=== PATIENT | female | born 1965 | race Caucasian/White ===

== ENCOUNTER 2017-05-28 16:58 | Observation (INO) ==
[2017-05-28] MEDS ORDERED: Ondansetron 4 MG/2 ML VIAL IVP PRN (18:58)
[2017-05-28] MEDS ORDERED: *HR* Morphine 2 MG/ML SYRINGE IVP PRN (18:58)
[2017-05-28] MEDS ORDERED: Naloxone 0.4 MG/ML INJ IVP PRN (18:58)
[2017-05-28] MEDS ORDERED: Nitroglycerin 0.4 MG TAB.SUBL SL PRN (18:59)
--- NOTE | 2017-05-28 19:05 | Event Note ---
Date of Encounter: 05/29/17 Time of Encounter: 18:40 Patient is a 51y/o female with PMH of HTN, depression, HLD, morbid obesity, recurrent UTI, chronic back pain, s/p renal ca s/p nephrectomy who was transferred from [facility] ER for evaluation of chest pain concerning for ACS and UTI. Patient seen and examined at bedside. Currently chest pain free. She reports of significant family history of cardiac disease in both parents. Reports of her father having his first CA at age 50. 1. Will admit to rule out ACS Serial TNI CTA chest was done at [facility] and PE was ruled out tele monitoring nitroglycerin SL prn chest pain morphine prn pain not relieved by nitro SL ASA, Statin O2 supplementation as needed NPO after midnight for nuclear stress test in am continue home antihypertensive agents. 2. UTI continue IV abx (Ceftriaxone 1gm IV qdaily) f/u urine cultures 3. History of renal ca s/p nephrectomy will continue gentle IV fluids given renal history and recent contrast use 4. Restart home medications after verification Case discussed with MARLIN Null.
--- NOTE | 2017-05-28 19:48 | Internal Med History&Physical ---
<Cynthia Null M - Last Filed: 05/28/17 19:42> Date of Encounter: 05/28/17 Time of Encounter: 19:42 Assessment and Plan (1) Chest pain Status: Acute Patient presents with mid-sternal squeezing chest pain, radiating to right shoulder and jaw, accompanied by shortness of breath. EKG showed no new ischemic changes. Troponin negative at 0.00. Aspirin and Nitro paste given. Continuous award clerk serial troponins echocardiogram and stress test in the morning. Qualifiers: Chest pain type: unspecified Qualified Code(s): R07.9 - Chest pain, unspecified (2) Tachycardia Status: Acute Patient with sinus tachycardia, HR running 100-110s. Patient reports this is chronic and her heart rate always runs high and in the low 100s. Holter monitor from 03/19/17 confirms this with average HR of 103, and baseline rhythm of sinus. (3) Urinary tract infection Status: Acute Patient reports recurrent UTIs. She has dysuria. UA consistent with UTI, most recent culture (in April) grew e.coli sensitive to Rocephin. WBC elevated to 15.2. Rocephin IVPB daily. Qualifiers: Urinary tract infection type: acute cystitis Hematuria presence: with hematuria Qualified Code(s): N30.01 - Acute cystitis with hematuria (4) Renal cell carcinoma Status: Chronic S/p right nephrectomy. Patient received IV contrast for CTA at [place] [facility]. Given patient's single kidney status, Hydrate with 0.9NS at 75mL/hr for renal protection. Qualifiers: Laterality: right Qualified Code(s): C64.1 - Malignant neoplasm of right kidney, except renal pelvis (5) DVT prophylaxis Status: Acute anti-embolic stockings heparin TID Internal Medicine - H&P: HPI Chief complaint: chest pain Admitted From: Emergency Dept Plans for Post Hospital Care: Home History of present illness: Ms. Li is a 51 year old female with hypertension, hyperlipidemia, GERD, asthma, history of renal cell carcinoma status post right nephrectomy presented to [place] ED with complaints of chest pain. Patient reports that approximately 1 PM this afternoon she had a sudden onset of midsternal chest tightness that radiated to her right shoulder and right jaw. She reports this was accompanied by shortness of breath, and lightheadedness. The pain comes and goes, and currently she is chest pain-free. She denies any palpitations, nausea, abdominal pain, fever, chills or sweats. Patient does report dysuria. Evaluation in [place] ED included and EKG showed sinus tachycardia with no ischemic changes troponin was negative at 0.00. Chest x-ray showed no acute cardiopulmonary process. Chest CT showed no evidence of PE. White blood cell count was elevated at 15.2. UA was consistent with UTI. She was given Nitropaste in the [place] ED and she remains chest pain-free. On exam, patient is alert and oriented, in no acute distress. Heart has regular rhythm, with tachycardic rate. Lungs are clear bilaterally to auscultation. Abdomen is soft nontender positive bowel sounds. No peripheral edema. Peripheral pulses intact. Past Med Surg Social Fam HX - Past Medical History Medical history: asthma, cancer, GERD, hyperlipidemia Psychiatric history: anxiety, depression - Past Surgical History Surgical History: hysterectomy, thyroidectomy - Social History Smoking Status: Former smoker Smokeless Tobacco Status: No Alcohol use: occasionally Drug use: none - Family History Mother Living Status: Age at : 70 Cause of : afib, pacemaker placement Hx Family Cardiac Disorders: Yes (chf, pulm htn) Hx Family Endocrine Disorder: Yes (DM) Father Family Member Ethnicity: Non- Living Status: Hx Family Cardiac Disorders: No Hx Family Respiratory Disorders: No Hx Family Cancer: Yes Hx Family GI Disorders: Yes (GERD) Hx Family Endocrine Disorder: No Hx Family Neuromuscular Disorders: No Hx Family Neurologic Disorders: No Hx Family HEENT Disorders: No Hx Family Autoimmune Disorders: No Internal Medicine - H&P: Meds HYDROcodone/Acet 5/325 mg [[place] 5-325 mg] 1 tab PO DAILY PRN 10/07/15 [History] hydroCHLOROthiazide [Hydrochlorothiazide] 25 mg PO DAILY 10/07/15 [History] Bupropion HCl [Wellbutrin Xl] 300 mg PO DAILY 05/14/17 [History] Estrogens, Conjugated [Premarin Cream] 1 appl VG AD 05/14/17 [History] Levothyroxine Sodium 150 mcg PO 0630 05/14/17 [History] Omeprazole [PriLOSEC] 40 mg PO DAILY 05/14/17 [History] Pravastatin Sodium [Pravachol] 80 mg PO HS 05/14/17 [History] Solifenacin Succinate [Vesicare] 10 mg PO DAILY 05/14/17 [History] Trimethoprim [Trimethoprim] 100 mg PO DAILY 05/14/17 [History] 3 Allergy/AdvReac Type Severity Reaction Status Date / Time No Known Allergies Allergy Verified 05/28/17 14:41 All Systems PM: A 10-system review of systems was performed and is negative for pertinent findings except as documented above in the HPI. - Constitutional Constitutional: no chills, no fever(s), no night sweats - EENT Eyes: no change in vision, no discharge, no pain, no photophobia Ears: no ear discharge, no ear pain, no tinnitus Nose, mouth and throat: no dysphagia, no nasal discharge, no neck pain, no sore throat - Cardiovascular Cardiovascular ROS IM: chest pain, dyspnea, lightheadedness, no diaphoresis, no palpitations, no syncope - Respiratory Respiratory: dyspnea, no cough, no wheezing, no excessive phlegm production - Gastrointestinal Gastrointestinal: no abdominal pain, no diarrhea, no hematemesis, no hematochezia, no melena, no nausea, no vomiting - Genitourinary Genitourinary: dysuria, no change in urinary stream, no flank pain, no hematuria - Musculoskeletal Musculoskeletal ROS IM: no numbness, no tingling - Integumentary Integumentary IM: no rash, no unusual bruising - Neurological Neurological ROS: no confusion, no convulsions, no focal weakness, no numbness, no tingling, no tremor(s) - Hematologic/Lymphatic Hematologic/Lymphatic: no easy bruising - Constitutional Vitals: Temp Pulse Resp BP Pulse Ox 97.7 F 97 16 100/69 95 05/28/17 19:24 05/28/17 19:24 05/28/17 19:24 05/28/17 19:24 05/28/17 19:24 General appearance: Present: A&O X 3, morbidly obese, pleasant - Head Head exam: Present: atraumatic, normocephalic - Eye Eye exam: Present: PERRL, conjuntiva pink, sclera anicteric Pupils: Present: PERRL - Neck Neck exam general surgery: Present: supple, trachea midline. Absent: lymphadenopathy - Respiratory Respiratory exam: Present: CTAB. Absent: accessory muscle use, rales, rhonchi, wheezes - Cardiovascular Cardiovascular exam: Present: RRR, +S1, +S2. Absent: diastolic murmur, gallop, rubs, systolic murmur - GI/Abdominal GI/Abdominal exam: Present: normal bowel sounds, soft, no peritoneal signs. Absent: distended, tenderness - Extremities Exam Extremities exam: Present: warm, radial pulses palpable and symmetrical. Absent : calf tenderness, cyanotic, pedal edema - Neurological Exam Neurological exam: Present: CN II-XII intact, oriented X3, no focal deficits. Absent: facial droop, speech deficit - Skin Skin exam: Present: dry, intact Internal Med - H&P Results - Labs Labs: Labs from [place] [facility]: Hgb 13.7 Hct 40.9 WBC 15.2 Plt 372 Na 136 K 3.6 Cl 105 CO2 18 BUN 16 Cr 1.08 Glu 138 D-dimer 386 Trop 0.00 <Sunitha Woo - Last Filed: 05/29/17 07:28> Date of Encounter: 05/28/17 Time of Encounter: 18:45 Internal Medicine - H&P: HPI History of present illness: Ms. Li is a 51 year old female All Systems PM: A 10-system review of systems was performed and is negative for pertinent findings except as documented above in the HPI. - Constitutional Vitals: Temp Pulse Resp BP Pulse Ox 98.1 F 88 16 92/60 98 05/29/17 02:50 05/29/17 02:50 05/29/17 02:50 05/29/17 02:50 05/29/17 02:50 Internal Med - H&P Results - Labs CBC & Chem 7: 05/29/17 03:05 05/29/17 03:05 Labs: Short CBC 05/29/17 Range/Units 03:05 WBC 12.0 H (4.3-11.1) K/mcL Hgb 12.3 (11.5-15.4) g/dL Hct 38.2 (35.3-44.9) % Plt Count 356 (140-400) K/mcL Neutrophils # 7.4 (1.6-8.9) K/mcL BMP 05/29/17 03:05 Sodium 137 Potassium 3.4 L Chloride 103 Carbon Dioxide 25 BUN 13 Creatinine 1.14 H Glucose 130 H Calcium 9.1 Cardiac Enzymes 05/28/17 05/29/17 Range/Units 21:01 03:05 Troponin I 0.00 0.00 (0-0.03) ng/mL - Attending Attestation case discussed with MARLIN Null, I agree with her documented findings, assessment, and plan.
[2017-05-28] MEDS: *HR* Heparin 5,000 UNIT/ML VIAL SQ SCH (20:55)
[2017-05-28] MEDS: 0.9 % Sodium Chloride 1,000 ML IVC SCH (20:55)
[2017-05-29 03:29] LABS: Basophils # 0.1 K/mcL (0.0-0.2); Basophils % 1.1 %; Eosinophils # 0.3 K/mcL (0.0-0.6); Eosinophils % 2.5 %; Hematocrit 38.2 % (35.3-44.9); Hemoglobin 12.3 g/dL (11.5-15.4); Immature Granulocytes % 1.4 % (0-4); Lymphocytes # 3.1 K/mcL (0.6-4.6); Lymphocytes % 25.5 %; Mean Corpuscular HGB Conc 32.2 g/dL (31.6-35.5); Mean Corpuscular Hemoglobin 29.2 pg (28.0-33.3); Mean Corpuscular Volume 90.7 fL (83.0-100.0); Mean Platelet Volume 9.8 fL (9.4-12.4); Monocytes # 0.9 K/mcL (0.0-1.3); Monocytes % 7.3 %; Neutrophils # 7.4 K/mcL (1.6-8.9); Platelet Count 356 K/mcL (140-400); Red Blood Count 4.21 M/mcL (3.82-4.97); Red Cell Distribution Width 13.4 % (11.5-14.5); Segmented Neutrophils % 62.2 %
[2017-05-29 03:43] LABS: BUN/Creatinine Ratio 11 (6-26); Blood Urea Nitrogen 13 mg/dL (7-20); Calcium 9.1 mg/dL (8.6-10.8); Carbon Dioxide 25 mEq/L (19-29); Chloride 103 mEq/L (98-109); Chol/HDL Ratio 4.5 (0-4.9); Cholesterol 162 mg/dL (< 200); Glucose 130 mg/dL (70-99); HDL Cholesterol 36 mg/dL (40-59); LDL Cholesterol,Calculated 87 mg/dL (0-99); Magnesium 1.9 mg/dL (1.6-2.6); Osmolality,Calculated 286 (280-300); Phosphorous 2.9 mg/dL (2.3-4.7); Potassium 3.4 mEq/L (3.5-4.5); Sodium 137 mEq/L (136-145); Triglycerides 195 mg/dL (< 150); eGFR For African Americans > 60 (> 60); eGFR For Non-African Americans 50 (> 60)
[2017-05-29] MEDS ORDERED: Regadenoson 0.4 MG/5 ML SYRINGE IVP ONE (05:49)
[2017-05-29] MEDS: *HR* Heparin 5,000 UNIT/ML VIAL SQ SCH ×3 (06:19→20:16)
[2017-05-29] MEDS ORDERED: Perflutren Lipid Microsphere 1.3 ML in 0.9 % Sodium Chloride 8.7 ML IVP ONE (08:31)
[2017-05-29] MEDS: 0.9 % Sodium Chloride 1,000 ML IVC SCH ×2 (12:13→13:31)
[2017-05-29] MEDS ORDERED: Ibuprofen 600 MG TABLET PO PRN (12:17)
[2017-05-29] MEDS: BuPROPion XL (24 HR) 150 MG TABLET PO SCH (13:33)
[2017-05-29] MEDS ORDERED: Acetaminophen 325 MG TABLET PO PRN (14:03)
--- NOTE | 2017-05-29 14:20 | Internal Med Progress Note ---
Date of Encounter: 05/29/17 Time of Encounter: 14:18 - Assessment and plan (1) Chest pain Current Visit: No Status: Acute Assessment and plan: Need to r/o ACS So far troponin x 3negative 2 D Echo - Normal LVEF No wall motion abnormalities Cont ASA, Statin Will f/u on Stres test results Qualifiers: Chest pain type: unspecified Qualified Code(s): R07.9 - Chest pain, unspecified (2) ZANA (acute kidney injury) Current Visit: No Status: Acute Assessment and plan: due to dehydration Received IVF till now (3) HLD (hyperlipidemia) Current Visit: No Status: Acute Assessment and plan: on statin Qualifiers: Qualified Code(s): E78.5 - Hyperlipidemia, unspecified (4) Hypertension Current Visit: No Status: Acute Assessment and plan: stable BP Held HCTZ due to ZANA Qualifiers: Hypertension type: essential hypertension Qualified Code(s): I10 - Essential (primary) hypertension (5) DVT prophylaxis Current Visit: No Status: Acute Assessment and plan: on SQ heparin - Subjective Interval history: Ms. Li is a 51 year old female with hypertension, hyperlipidemia, GERD, asthma, history of renal cell carcinoma status post right nephrectomy presented to [place] ED with complaints of chest pain. Patient reports that approximately 1 PM this afternoon she had a sudden onset of midsternal chest tightness that radiated to her right shoulder and right jaw. She reports this was accompanied by shortness of breath, and lightheadedness. The pain comes and goes, and currently she is chest pain-free. She denies any palpitations, nausea, abdominal pain, fever, chills or sweats. Patient does report dysuria. Evaluation in [place] ED included and EKG showed sinus tachycardia with no ischemic changes troponin was negative at 0.00. Chest x-ray showed no acute cardiopulmonary process. Chest CT showed no evidence of PE. Pt was admitted here for chest pain to r/o ACS. Pt denied any more CP / SOB. Denied any N / V - Constitutional Vitals: Temp Pulse Resp BP Pulse Ox 97.9 F 99 14 120/86 95 05/29/17 11:32 05/29/17 11:32 05/29/17 11:32 05/29/17 11:32 05/29/17 11:32 General appearance: Present: A&O X 3, morbidly obese, pleasant - Head Head exam: Present: atraumatic, normal inspection - Respiratory Respiratory exam: Present: decreased breath sounds, wheezes. Absent: respiratory distress, rhonchi - Cardiovascular Cardiovascular exam: Present: RRR, +S1, +S2. Absent: systolic murmur - Extremities Exam Extremities exam: Absent: calf tenderness, pedal edema, tenderness - Back Exam Back exam: Absent: CVA tenderness (L), CVA tenderness (R) - Neurological Exam Neurological exam: Present: alert, oriented X3 - Psychiatric Psychiatric exam: Present: normal affect, normal mood Internal Medicine: Result - Labs CBC & Chem 7: 05/29/17 03:05 05/29/17 03:05 Labs: Short CBC 05/29/17 Range/Units 03:05 WBC 12.0 H (4.3-11.1) K/mcL Hgb 12.3 (11.5-15.4) g/dL Hct 38.2 (35.3-44.9) % Plt Count 356 (140-400) K/mcL Neutrophils # 7.4 (1.6-8.9) K/mcL BMP 05/29/17 03:05 Sodium 137 Potassium 3.4 L Chloride 103 Carbon Dioxide 25 BUN 13 Creatinine 1.14 H Glucose 130 H Calcium 9.1 Cardiac Enzymes 05/28/17 05/29/17 Range/Units 21:01 03:05 Troponin I 0.00 0.00 (0-0.03) ng/mL Consult Discharge Plan - Plan Referrals: Gokul Barreto DO [Primary Care Provider] -
[2017-05-30] MEDS: *HR* Heparin 5,000 UNIT/ML VIAL SQ SCH ×2 (05:58→15:19)
[2017-05-30 07:05] LABS: Basophils # 0.1 K/mcL (0.0-0.2); Basophils % 1.5 %; Eosinophils # 0.3 K/mcL (0.0-0.6); Eosinophils % 3.3 %; Hematocrit 38.9 % (35.3-44.9); Hemoglobin 12.2 g/dL (11.5-15.4); Immature Granulocytes % 2.2 % (0-4); Lymphocytes # 2.8 K/mcL (0.6-4.6); Lymphocytes % 29.7 %; Mean Corpuscular HGB Conc 31.4 g/dL (31.6-35.5); Mean Corpuscular Hemoglobin 28.8 pg (28.0-33.3); Monocytes # 0.8 K/mcL (0.0-1.3); Monocytes % 8.1 %; Neutrophils # 5.1 K/mcL (1.6-8.9); Platelet Count 329 K/mcL (140-400); Red Blood Count 4.23 M/mcL (3.82-4.97); Red Cell Distribution Width 13.5 % (11.5-14.5); Segmented Neutrophils % 55.2 %
[2017-05-30 07:07] LABS: BUN/Creatinine Ratio 9 (6-26); Blood Urea Nitrogen 9 mg/dL (7-20); Calcium 9.1 mg/dL (8.6-10.8); Carbon Dioxide 24 mEq/L (19-29); Chloride 107 mEq/L (98-109); Glucose 107 mg/dL (70-99); Osmolality,Calculated 289 (280-300); Potassium 3.5 mEq/L (3.5-4.5); Sodium 140 mEq/L (136-145); eGFR For African Americans > 60 (> 60); eGFR For Non-African Americans 58 (> 60)
[2017-05-30] MEDS: BuPROPion XL (24 HR) 150 MG TABLET PO SCH (08:44)
[2017-05-30] MEDS ORDERED: hydroCHLOROthiazide 25 MG TABLET PO SCH (09:00)
[2017-05-30] MEDS ORDERED: TRIMETHOPRIM 100 MG PO SCH (09:00)
[2017-05-30] MEDS ORDERED: Estrogens, Conjugated CREAM 30 GM TUBE VG SCH (09:00)
--- NOTE | 2017-05-30 15:25 | Discharge Summary ---
Date of Encounter: 05/30/17 Time of Encounter: 15:19 - Discharge Diagnosis (1) Chest pain Priority: Primary Status: Acute Qualifiers: Chest pain type: unspecified Qualified Code(s): R07.9 - Chest pain, unspecified (2) ZANA (acute kidney injury) Priority: Primary Status: Resolved (3) HLD (hyperlipidemia) Priority: Secondary Status: Acute Qualifiers: Qualified Code(s): E78.5 - Hyperlipidemia, unspecified (4) Hypertension Priority: Secondary Status: Acute Qualifiers: Hypertension type: essential hypertension Qualified Code(s): I10 - Essential (primary) hypertension - Discharge Medications Prescriptions: Nitroglycerin 0.4 mg SL Q5MIN PRN #15 PRN Reason: Chest Pain Metoprolol [Lopressor] 12.5 mg PO BID 30 Days Home Medications: HYDROcodone/Acet 5/325 mg [[place] 5-325 mg] 1 tab PO DAILY PRN 10/07/15 [History] Bupropion HCl [Wellbutrin Xl] 300 mg PO DAILY 05/14/17 [History] Estrogens, Conjugated [Premarin Cream] 1 appl VG AD 05/14/17 [History] Levothyroxine Sodium 150 mcg PO 0630 05/14/17 [History] Omeprazole [PriLOSEC] 40 mg PO DAILY 05/14/17 [History] Pravastatin Sodium [Pravachol] 80 mg PO HS 05/14/17 [History] Solifenacin Succinate [Vesicare] 10 mg PO DAILY 05/14/17 [History] Trimethoprim 100 mg PO DAILY 05/14/17 [History] Metoprolol [Lopressor] 12.5 mg PO BID 30 Days 05/30/17 [Rx] Nitroglycerin 0.4 mg SL Q5MIN PRN #15 05/30/17 [Rx] Allergies/Adverse Reactions: 3 Allergy/AdvReac Type Severity Reaction Status Date / Time No Known Allergies Allergy Verified 05/28/17 14:41 Procedures/tests Complete & Pending: Procedures Performed prior 72 hours Category Date Time Status NM meggan perf SPECT multi [NM] Routine Exams 05/28/17 18:59 Taken EV echocardiogram w enhance Routine Y 05/29/17 20:04 Completed SP pharm nuclear stress Routine Y 05/29/17 07:05 Completed Date of admission: 05/28/17 19:01 Primary care physician: Gokul Barreto DO Consults: 05/30/17 13:08 Consult to Cardiology [CONS] Routine Comment: Consulting Provider: Cardiology [facility] Reason for Consult: abnormal stress test Call Completed: Yes - Patient Status Disposition: Home, Self-Care Condition: Good Overall status at discharge: patient is back to baseline - Discharge Instructions Follow Up With: Gokul Barreto DO [Primary Care Provider] - (Appointment has been web requested. Office will contact patient at home to schedule appointment. ) Alex Fraire DO [Partnered Physician] - Additional Instructions: Need to f/u with PCP in one week Need to f/u with Master Control Operator Dr. Martinez in one week - Diet and Activity Activity: increase activity as tolerated Diet: low salt diet Hospital course: Ms. Li is a 51 year old female with hypertension, hyperlipidemia, GERD, asthma, history of renal cell carcinoma status post right nephrectomy presented to [place] [facility] with complaints of chest pain. Patient reports that approximately 1 PM this afternoon she had a sudden onset of midsternal chest tightness that radiated to her right shoulder and right jaw. She reports this was accompanied by shortness of breath, and lightheadedness. The pain comes and goes, and currently she is chest pain-free. She denies any palpitations, nausea, abdominal pain, fever, chills or sweats. Patient does report dysuria. Evaluation in [place] ED included and EKG showed sinus tachycardia with no ischemic changes troponin was negative at 0.00. Chest x-ray showed no acute cardiopulmonary process. Chest CT showed no evidence of PE. Pt was admitted here for chest pain to r/o ACS. She was placed on senior software manager and checked serial troponin x3 which were negative. Since she is at high risk for ACS with all the risk factors, we did nuclear stress test , which came back as slightly abnormal with small sized, mild intensity, reversible apical lateral defect suspicious for breast attentuation, however ischemia cannot be excluded. So I consulted Master Control Operator Dr. Fraire, who did evaluated the pt and recommend medical management for now and f/u with him as an out pt. Pt denied any more CP / SOB. So I am discharging her in stable condition today, recommend to start taking Metoprolol 12.5mg BID, cont ASA and Statin. - Time Spent with Patient Total time spent providing and/or coordinating discharge services: - Constitutional Vitals: Temp Pulse Resp BP Pulse Ox 98.5 F 92 16 126/90 96 05/30/17 11:31 05/30/17 11:31 05/30/17 11:31 05/30/17 11:31 05/30/17 11:31 General appearance: Present: A&O X 3, morbidly obese, pleasant - Head Head exam: Present: atraumatic, normal inspection - Respiratory Respiratory exam: Present: decreased breath sounds, wheezes. Absent: rales, respiratory distress, rhonchi - Cardiovascular Cardiovascular exam: Present: RRR, +S1, +S2. Absent: diastolic murmur, gallop, rubs, systolic murmur - GI/Abdominal GI/Abdominal exam: Present: soft. Absent: distended, tenderness - Extremities Exam Extremities exam: Absent: calf tenderness, pedal edema, tenderness - Neurological Exam Neurological exam: Present: alert, oriented X3 - Psychiatric Psychiatric exam: Present: normal affect, normal mood
[2017-05-30 15:30] VITALS: BP 118/82
--- NOTE | 2017-05-30 16:20 | Cardiology Consult Note ---
Date of Encounter: 05/30/17 Time of Encounter: 16:17 Assessment and Plan (1) Chest pain Status: Acute Chest pain somewhat atypical - occurred at rest, no symptoms with exertion. Troponins negative. LV function normal. Equivocal findings on stress test. All of this discussed with patient. Symptoms have not returned. We discussed medical therapy/observation vs LHC. Given currentlly asymptomatic, somewhat atypical symptoms, and equivocal findings on stress test - conservative approach is reasonable. She declines LHC, wishes to go home. Recommend aspirin, BB. SL NTG prn. Risk factor modification. If symptoms return or worsen, call 911 and go to ER. Followup with me in the office. Thanks, Alex Fraire DO, [facility] Qualifiers: Chest pain type: unspecified Qualified Code(s): R07.9 - Chest pain, unspecified Discussion w patient/family: The assessment and plan as outlined above was discussed with the patient and/or family members who expressed understanding and agreement. All questions were answered. Thank you for involving us in the care of your patient. Please call with any questions. History of Present Illness Consult date: 05/30/17 Requesting physician: Gretta Mcelroy Consult reason: Chest pain Chief complaint: Chest pain History of present illness: Ms. Li is a 51 year old female with a history of HTN, obesity, and prior tobacco use. 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 No chest pain reported with activity - i.e. no chest pain with steps. Troponins negative. TTE - normal LV function. 2 day stress test - Small, mild intensity, reversible defect. Breast attenuation vs ischemia. Past Med Surg Social Fam HX - Past Medical History Medical history: asthma, cancer, GERD, hyperlipidemia Psychiatric history: anxiety, depression - Past Surgical History Surgical History: hysterectomy, thyroidectomy - Social History Smoking Status: Former smoker Smokeless Tobacco Status: No Alcohol use: occasionally Drug use: none - Family History Mother Living Status: Age at : 70 Cause of : afib, pacemaker placement Hx Family Cardiac Disorders: Yes (chf, pulm htn) Hx Family Endocrine Disorder: Yes (DM) Father Family Member Ethnicity: Non- Living Status: Hx Family Cardiac Disorders: No Hx Family Respiratory Disorders: No Hx Family Cancer: Yes Hx Family GI Disorders: Yes (GERD) Hx Family Endocrine Disorder: No Hx Family Neuromuscular Disorders: No Hx Family Neurologic Disorders: No Hx Family HEENT Disorders: No Hx Family Autoimmune Disorders: No Medications and Allergies HYDROcodone/Acet 5/325 mg [[place] 5-325 mg] 1 tab PO DAILY PRN 10/07/15 [History] Bupropion HCl [Wellbutrin Xl] 300 mg PO DAILY 05/14/17 [History] Estrogens, Conjugated [Premarin Cream] 1 appl VG AD 05/14/17 [History] Levothyroxine Sodium 150 mcg PO 0630 05/14/17 [History] Omeprazole [PriLOSEC] 40 mg PO DAILY 05/14/17 [History] Pravastatin Sodium [Pravachol] 80 mg PO HS 05/14/17 [History] Solifenacin Succinate [Vesicare] 10 mg PO DAILY 05/14/17 [History] Trimethoprim 100 mg PO DAILY 05/14/17 [History] Metoprolol [Lopressor] 12.5 mg PO BID 30 Days 05/30/17 [Rx] Nitroglycerin 0.4 mg SL Q5MIN PRN #15 05/30/17 [Rx] 3 Allergy/AdvReac Type Severity Reaction Status Date / Time No Known Allergies Allergy Verified 05/28/17 14:41 All Systems Review: A 10-system review of systems was performed and is negative for pertinent findings except as documented above in the HPI. - Cardiovascular Cardiovascular: as per HPI, chest pain at rest Physical Examination Vital Signs, Last 4 Hours Temp Pulse Resp BP Pulse Ox 05/30/17 15:25 98.1 F 97 17 118/82 98 General: Conversant, No Apparent Distress HEENT: Atraumatic, Normocephaly, Mucus Membranes Moist Neck: No JVD, Normal carotid pulses Cardiac: Reg Rate and Rhythm, Normal S1 and S2, No Murmur Lungs: Normal Breath Sounds, No Wheeze, Rales, Rhonchi Neuro: Alert and responsive, No focal deficits noted Abdomen: Soft, Non-Tender, Other (Obese) Skin: No rashes noted on visualized skin Musculoskeletal: No Chest Wall Tenderness Extremities: No Clubbing, No Cyanosis, No Edema Results 05/30/17 05:34 05/30/17 05:34 Lab Results 05/30/17 05/30/17 05:34 05:34 WBC 9.3 Hgb 12.2 Hct 38.9 Plt Count 329 Sodium 140 Potassium 3.5 Chloride 107 Carbon Dioxide 24 BUN 9 Creatinine 1.00 Glucose 107 H Calcium 9.1 - Imaging and Cardiology Stress Test: report reviewed Echo: report reviewed - EKG Interpretation EKG results cardiology: personally reviewed Consult Discharge Plan - Plan Instructions: Chest Pain (DC), Urinary Tract Infection in Women (DC), Chronic Hypertension (DC) Additional Instructions: Need to f/u with PCP in one week Need to f/u with Medical Microbiologist Dr. Martinez in one week Referrals: Gokul Barreto DO [Primary Care Provider] - (Appointment has been web requested. Office will contact patient at home to schedule appointment. ) Alex Fraire DO [Partnered Physician] - (Appointment has been web requested. Office will contact patient at home to schedule. ) Prescriptions: Nitroglycerin 0.4 mg SL Q5MIN PRN #15 PRN Reason: Chest Pain Metoprolol [Lopressor] 12.5 mg PO BID 30 Days
--- NOTE | 2017-06-01 08:27 | Nuclear Medicine Stress Report ---
Regadenoson Nuclear 2 day Name: Laina Li Date of Study: 05/29/2017 Date: 1965 Ht: 66.0 in Medical Record#: [id number] Age: 51 Wt: 267.0 lb Gender: Female Order #: [id number] Location: [facility] Room: [facility] Supervising Provider: Nick Duran CNP Reading Physician: Alex Fraire DO, [facility], [facility] Ordering Physician: Genesis Lee CNP Primary Care Physician: Gokul Barreto DO Stress Technologist: Kiran Reagan CRT [employer] Manager: Khushi Stanton Indications: Chest Pain Impression: Pharmacologic stress ECG is negative for ischemia at level of heart rate achieved. Gated EF > 70%. Small sized, mild intensity, reversible apical lateral defect. Findings suspicious for breast attenuation, but ischemia cannot be excluded. Ordering provider notified via [employer]. History: Hypertension Hypercholesteremia Stress Test Summary: Stress Test Type: Pharmacologic Regadenoson 0.4mg/5ml given IV Baseline Information: Initial Heart Rate: 113 Blood Pressure: 112/70 Stress Information: Test Terminated Due to (primary): As per protocol Maximum Blood Pressure: 110/64 Maximum Heart Rate: 130 Percent Maximum Heart Rate Achieved: 77 Double Product: [id number] METS Reached: 1 Symptoms: No chest symptoms Nuclear Summary: SPECT myocardial perfusion imaging using [id number] Sestamibi given intravenously was performed at rest and following cardiac stress testing. The resting images were obtained following initial dose of 35.6 mCi. Following stress an additional dose of 35 mCi was given at peak exercise or 30 seconds post regadenoson infusion. Medication Given: Time Medication Dose Units Route Findings: Stress Note * Resting ECG demonstrated sinus tachycardia. * No baseline arrhythmias were noted. * Pharmacologic stress ECG is negative for ischemia at level of heart rate achieved. * No arrhythmias were noted during stress. * Patient had no chest pain during stress. * Normal hemodynamic responses to pharmacologic stress. Study Quality * Study quality is average. Gated EF > 70% * Gated EF > 70%. Left Ventricle * The left ventricle is not dilated. LVEDV = 53 mL. NORMALS * Normal wall motion. * Normal Segmental Perfusion in rest. Apical Perfusion Stress * The apical lateral segment shows a mild reduction in perfusion. TID * No evidence of transient ischemic dilatation. TID ratio = 0.96. Lung Uptake * There is no evidence of increase lung uptake. Updated by Alex Fraire DO, LIZBET, ALESSIA, SHERRI on 05/30/2017 9:08:23 AM electronically signed on 05/30/2017 9:13:32 AM with status of Final
== END 2017-05-30 15:53 | disposition home or self-care (01) ==
LOC: 3BNU → SUATTDRO 19:01
PROVIDERS: ADMIT Internal Medicine; ATTEND Family Medicine

== ENCOUNTER 2020-09-11 14:02 | Inpatient (IN) ==
[2020-09-11 15:02] LABS: Basophils # 0.1 K/mcL (0.0-0.2); Basophils % 0.6 %; Eosinophils % 0.1 %; Hematocrit 44.8 % (35.3-44.9); Hemoglobin 14.2 g/dL (11.5-15.4); Immature Granulocytes % 2.9 % (0-4); Lymphocytes # 1.3 K/mcL (0.6-4.6); Lymphocytes % 12.2 %; Mean Corpuscular HGB Conc 31.7 g/dL (31.6-35.5); Mean Corpuscular Hemoglobin 29.8 pg (28.0-33.3); Mean Corpuscular Volume 94.1 fL (83.0-100.0); Mean Platelet Volume 9.6 fL (9.4-12.4); Monocytes # 0.8 K/mcL (0.0-1.3); Monocytes % 7.1 %; Neutrophils # 8.3 K/mcL (1.6-8.9); Platelet Count 318 K/mcL (140-400); Red Blood Count 4.76 M/mcL (3.82-4.97); Red Cell Distribution Width 13.3 % (11.5-14.5); Segmented Neutrophils % 77.1 %; White Blood Count 10.8 K/mcL (4.3-11.1)
[2020-09-11 15:17] LABS: Alanine Aminotransferase 46 Units/L (7-52); Albumin/Globulin Ratio 1.1 (1.1-2.2); Alkaline Phosphatase 84 Units/L (34-104); Aspartate Amino Transferase 34 Units/L (13-39); BUN/Creatinine Ratio 16 (6-26); Bilirubin,Total 0.4 mg/dL (0.3-1.0); Blood Urea Nitrogen 16 mg/dL (6-20); Calcium 9.1 mg/dL (8.6-10.3); Carbon Dioxide 25 mEq/L (23-29); Chloride 100 mEq/L (98-107); Globulin 3.6 g/dL (2.4-3.5); Glucose 98 mg/dL (70-105); Osmolality,Calculated 283 (280-300); Potassium 3.6 mEq/L (3.5-5.1); Sodium 136 mEq/L (136-145); Total Protein 7.6 g/dL (6.4-8.9); Troponin I < 0.03 ng/mL (< 0.04); eGFR For African Americans > 60 (> 60); eGFR For Non-African Americans 58 (> 60)
[2020-09-11] MEDS ORDERED: Azithromycin 500 MG in 0.9 % Sodium Chloride 250 ML IVPB ONE (16:31)
[2020-09-11 16:33] LABS: Bacteria,Urine Few per hpf (None-Few); Bilirubin,Urine Negative (Negative); Blood,Urine Negative (Negative); Clarity,Urine Turbid (Clear); Color,Urine Yellow (Yellow); Glucose,Urine (UA) 30 mg/dL (Normal); Hyaline Casts,Urine Few per lpf (None Seen); Ketones,Urine Negative (Negative); Leukocyte Esterase,Urine Negative (Negative); Mucus,Urine Moderate per lpf (None-Few); Nitrite,Urine Negative (Negative); PH,Urine 6.5 pH Units (5.0-8.0); Protein,Urine 100 mg/dL (Neg-Trace); Specific Gravity,Urine 1.029 (1.010-1.025); Squamous Epithelial Cell,Urine Moderate per hpf (None-Few); Urobilinogen,Urine Normal (Normal)
[2020-09-11 17:18] LABS: Adenovirus Not Detected (Not Detect); Bordetella Pertussis Not Detected (Not Detect); Chlamydophila pneumoniae Not Detected (Not Detect); Coronavirus 229E Not Detected (Not Detect); Coronavirus HKU1 Not Detected (Not Detect); Coronavirus NL63 Not Detected (Not Detect); Coronavirus OC43 Not Detected (Not Detect); Human Metapneumovirus Not Detected (Not Detect); Human Rhinovirus/Enterovirus Not Detected (Not Detect); Influenza A Subtype 2009 H1 Not Detected (Not Detect); Influenza B Not Detected (Not Detect); Mycoplasma pneumoniae Not Detected (Not Detect); Parainfluenza Virus 1 Not Detected (Not Detect); Parainfluenza Virus 2 Not Detected (Not Detect); Parainfluenza Virus 3 Not Detected (Not Detect); Parainfluenza Virus 4 Not Detected (Not Detect); Respiratory Syncytial Virus Not Detected (Not Detect)
[2020-09-11 17:25] LABS: SARS-CoV-2 DETECTED (Not Detect)
[2020-09-11] MEDS ORDERED: Morphine Sulfate 2 MG/ML SYRINGE IVP ONE (18:01)
[2020-09-11] MEDS ORDERED: Dexamethasone 4 MG/ML VIAL IVP ONE (18:45)
[2020-09-11] MEDS ORDERED: Naloxone 0.4 MG/ML INJ IVP PRN (19:56)
[2020-09-11] MEDS ORDERED: Acetaminophen 325 MG TABLET PO PRN (19:56)
[2020-09-11] MEDS ORDERED: Ondansetron 4 MG/2 ML VIAL IVP PRN (19:56)
[2020-09-11] MEDS ORDERED: Albuterol 2.5 MG/3 ML NEBULIZER IH PRN (19:59)
[2020-09-12] MEDS ORDERED: *HR* Enoxaparin 40 MG/0.4 ML SYRINGE SQ SCH (06:00)
[2020-09-12 06:40] LABS: Basophils # 0.1 K/mcL (0.0-0.2); Basophils % 0.8 %; Eosinophils % 0.3 %; Hematocrit 39.4 % (35.3-44.9); Hemoglobin 12.7 g/dL (11.5-15.4); Immature Granulocytes % 5.4 % (0-4); Lymphocytes # 0.8 K/mcL (0.6-4.6); Lymphocytes % 11.6 %; Mean Corpuscular HGB Conc 32.2 g/dL (31.6-35.5); Mean Corpuscular Hemoglobin 29.6 pg (28.0-33.3); Mean Corpuscular Volume 91.8 fL (83.0-100.0); Mean Platelet Volume 9.8 fL (9.4-12.4); Monocytes # 0.6 K/mcL (0.0-1.3); Monocytes % 9.6 %; Neutrophils # 4.7 K/mcL (1.6-8.9); Platelet Count 309 K/mcL (140-400); Red Blood Count 4.29 M/mcL (3.82-4.97); Red Cell Distribution Width 13.6 % (11.5-14.5); Segmented Neutrophils % 72.3 %; White Blood Count 6.5 K/mcL (4.3-11.1)
[2020-09-12 06:53] LABS: INR 1.1; Prothrombin Time 12.8 Seconds (9.4-12.1)
[2020-09-12 07:17] LABS: Platelet Estimate Normal (Normal)
[2020-09-12 07:43] LABS: Alanine Aminotransferase 35 Units/L (7-52); Albumin 3.7 g/dL (3.5-5.7); Albumin/Globulin Ratio 1.2 (1.1-2.2); Alkaline Phosphatase 71 Units/L (34-104); Aspartate Amino Transferase 29 Units/L (13-39); BUN/Creatinine Ratio 19 (6-26); Bilirubin,Total 0.4 mg/dL (0.3-1.0); Blood Urea Nitrogen 16 mg/dL (6-20); Calcium 8.8 mg/dL (8.6-10.3); Carbon Dioxide 19 mEq/L (23-29); Chloride 104 mEq/L (98-107); Chol/HDL Ratio 3.8 (0-4.9); Cholesterol 150 mg/dL (< 200); Globulin 3.2 g/dL (2.4-3.5); Glucose 182 mg/dL (70-105); HDL Cholesterol 40 mg/dL (40-59); LDL Cholesterol,Calculated 67 mg/dL (< 100); Lactate Dehydrogenase 245 Units/L (140-271); Magnesium 1.8 mg/dL (1.6-2.6); Osmolality,Calculated 286 (280-300); Potassium 4.2 mEq/L (3.5-5.1); Sodium 135 mEq/L (136-145); Total Protein 6.9 g/dL (6.4-8.9); Triglycerides 216 mg/dL (< 150); eGFR For African Americans > 60 (> 60); eGFR For Non-African Americans > 60 (> 60)
[2020-09-12 07:46] LABS: Ferritin 309 ng/mL (10-120)
[2020-09-12] MEDS: Dexamethasone Sodium Phos/PF 10 MG/ML VIAL IVP SCH (08:37)
[2020-09-12] MEDS: Aspirin Enteric Coated 81 MG Tablet PO SCH (08:37)
[2020-09-12] MEDS: BuPROPion XL (24 HR) 150 MG TABLET PO SCH (08:37)
[2020-09-12] MEDS: Cholecalciferol (D-3) 1,000 UNIT (25MCG) TABLET PO SCH (08:37)
[2020-09-12] MEDS ORDERED: Metoprolol 100 MG TABLET PO SCH (09:00)
[2020-09-12] MEDS ORDERED: Metoprolol XL (24 HR) Succ 50 MG TAB.ER.24H PO SCH (09:00)
[2020-09-12] MEDS: Furosemide 40 MG/4 ML VIAL IVP SCH (10:44)
[2020-09-12 10:50] LABS: C-Reactive Protein 93 mg/L (Less than 10)
[2020-09-12] MEDS: Metoprolol XL (24 HR) Succ 50 MG TAB.ER.24H PO SCH (16:02)
[2020-09-12] MEDS: *HR* Enoxaparin 40 MG/0.4 ML SYRINGE SQ SCH (16:02)
[2020-09-12] MEDS: traZODone 50 MG TABLET PO PRN (19:44)
[2020-09-13 02:14] LABS: VBG HCO3 21 mEq/L (21-27); VBG PCO2 27 mmHg (41-51); VBG PH 7.49 pH Units (7.32-7.42); VBG PO2 138 mmHg (25-50)
[2020-09-13 02:31] LABS: BUN/Creatinine Ratio 21 (6-26); Blood Urea Nitrogen 15 mg/dL (6-20); Calcium 8.7 mg/dL (8.6-10.3); Carbon Dioxide 22 mEq/L (23-29); Chloride 103 mEq/L (98-107); Glucose 154 mg/dL (70-105); Osmolality,Calculated 284 (280-300); Potassium 3.7 mEq/L (3.5-5.1); Sodium 135 mEq/L (136-145); eGFR For African Americans > 60 (> 60); eGFR For Non-African Americans > 60 (> 60)
[2020-09-13] MEDS: *HR* Enoxaparin 40 MG/0.4 ML SYRINGE SQ SCH ×2 (05:24→17:23)
[2020-09-13] MEDS: Cholecalciferol (D-3) 1,000 UNIT (25MCG) TABLET PO SCH (07:22)
[2020-09-13] MEDS: Aspirin Enteric Coated 81 MG Tablet PO SCH (07:23)
[2020-09-13] MEDS: Metoprolol XL (24 HR) Succ 50 MG TAB.ER.24H PO SCH (07:23)
[2020-09-13] MEDS: Dexamethasone Sodium Phos/PF 10 MG/ML VIAL IVP SCH (07:23)
[2020-09-13] MEDS: BuPROPion XL (24 HR) 150 MG TABLET PO SCH (07:23)
[2020-09-13] MEDS: Furosemide 40 MG/4 ML VIAL IVP SCH (07:23)
[2020-09-13] MEDS: traZODone 50 MG TABLET PO PRN (22:30)
[2020-09-14] MEDS: *HR* Enoxaparin 40 MG/0.4 ML SYRINGE SQ SCH ×2 (06:03→17:13)
[2020-09-14] MEDS: Aspirin Enteric Coated 81 MG Tablet PO SCH (08:58)
[2020-09-14] MEDS: Cholecalciferol (D-3) 1,000 UNIT (25MCG) TABLET PO SCH (08:58)
[2020-09-14] MEDS: Furosemide 40 MG/4 ML VIAL IVP SCH (08:58)
[2020-09-14] MEDS: BuPROPion XL (24 HR) 150 MG TABLET PO SCH (08:58)
[2020-09-14] MEDS: Metoprolol XL (24 HR) Succ 50 MG TAB.ER.24H PO SCH (08:58)
[2020-09-14] MEDS: Dexamethasone Sodium Phos/PF 10 MG/ML VIAL IVP SCH (09:21)
[2020-09-14] MEDS: traZODone 50 MG TABLET PO PRN (20:19)
[2020-09-15 01:57] LABS: VBG HCO3 23 mEq/L (21-27); VBG PCO2 36 mmHg (41-51); VBG PH 7.42 pH Units (7.32-7.42); VBG PO2 194 mmHg (25-50)
[2020-09-15 02:01] LABS: Hematocrit 39.7 % (35.3-44.9); Hemoglobin 13.1 g/dL (11.5-15.4); Mean Corpuscular Hemoglobin 30.7 pg (28.0-33.3); Mean Platelet Volume 9.2 fL (9.4-12.4); Platelet Count 409 K/mcL (140-400); Red Blood Count 4.27 M/mcL (3.82-4.97); Red Cell Distribution Width 12.9 % (11.5-14.5); White Blood Count 10.4 K/mcL (4.3-11.1)
[2020-09-15 02:02] LABS: INR 1.1; Prothrombin Time 12.5 Seconds (9.4-12.1)
[2020-09-15 02:22] LABS: BUN/Creatinine Ratio 22 (6-26); Blood Urea Nitrogen 17 mg/dL (6-20); C-Reactive Protein 17 mg/L (Less than 10); Calcium 8.7 mg/dL (8.6-10.3); Carbon Dioxide 21 mEq/L (23-29); Chloride 102 mEq/L (98-107); Glucose 160 mg/dL (70-105); Lactate Dehydrogenase 231 Units/L (140-271); Magnesium 1.6 mg/dL (1.6-2.6); Osmolality,Calculated 281 (280-300); Potassium 3.6 mEq/L (3.5-5.1); Sodium 133 mEq/L (136-145); eGFR For African Americans > 60 (> 60); eGFR For Non-African Americans > 60 (> 60)
[2020-09-15 02:33] LABS: Ferritin 223 ng/mL (10-120)
[2020-09-15] MEDS: *HR* Enoxaparin 40 MG/0.4 ML SYRINGE SQ SCH ×2 (05:22→18:37)
[2020-09-15] MEDS: Dexamethasone Sodium Phos/PF 10 MG/ML VIAL IVP SCH (08:23)
[2020-09-15] MEDS: Furosemide 40 MG/4 ML VIAL IVP SCH (08:24)
[2020-09-15] MEDS: Metoprolol XL (24 HR) Succ 50 MG TAB.ER.24H PO SCH (08:24)
[2020-09-15] MEDS: BuPROPion XL (24 HR) 150 MG TABLET PO SCH (08:24)
[2020-09-15] MEDS: Aspirin Enteric Coated 81 MG Tablet PO SCH (08:24)
[2020-09-15] MEDS: Cholecalciferol (D-3) 1,000 UNIT (25MCG) TABLET PO SCH (08:24)
[2020-09-16] MEDS: *HR* Enoxaparin 40 MG/0.4 ML SYRINGE SQ SCH (05:42)
[2020-09-16 06:57] VITALS: BP 101/70
[2020-09-16] MEDS: Dexamethasone Sodium Phos/PF 10 MG/ML VIAL IVP SCH (08:53)
[2020-09-16] MEDS: Furosemide 40 MG/4 ML VIAL IVP SCH (08:53)
[2020-09-16] MEDS: Cholecalciferol (D-3) 1,000 UNIT (25MCG) TABLET PO SCH (08:54)
[2020-09-16] MEDS: Metoprolol XL (24 HR) Succ 50 MG TAB.ER.24H PO SCH (08:54)
[2020-09-16] MEDS: BuPROPion XL (24 HR) 150 MG TABLET PO SCH (08:54)
[2020-09-16] MEDS: Aspirin Enteric Coated 81 MG Tablet PO SCH (08:55)
== END 2020-09-16 14:48 | disposition home or self-care (01) | DRG 177 ==
LOC: EMEROOARM 14:02 → 2NENU 14:02 → SUATTDRO 09-12 10:18 → 3BNU 09-13 13:10
PROVIDERS: ADMIT Family Medicine; ATTEND Internal Medicine